=== PATIENT | male | born 1975 | race Caucasian/White ===

== ENCOUNTER 2025-06-13 19:56 | Inpatient (IN) | payer SELFPAY ==
[2025-06-13] MEDS ORDERED: Nitroglycerin 0.4 MG TAB 1 EACH ONE (20:49)
[2025-06-13 20:50] LABS: #Basophils Less than 0.03 10x3/uL (0.0-0.2); #Eosinophils 0.18 10x3/uL (0.0-0.5); #Monocytes 0.64 10x3/uL (0.0-1.1); #Neutrophils 4.06 10x3/uL (1.5-8.4); %Basophils 0.3 % (0.0-2.0); %Eosinophils 2.8 % (0.0-6.0); %Lymphocytes 24.2 % (18.0-47.0); %Monocytes 9.9 % (0.0-10.0); %Neutrophils 62.5 % (40.0-75.0); Hematocrit 46.6 % (38.8-50.0); Hemoglobin 14.8 g/dL (13.5-17.5); Mean Corpuscular Hemoglobin 27.4 pg (27.0-33.0); Mean Corpuscular Volume 86.3 fL (81.2-95.1); Platelet Count 226 10x3/uL (150-450); Red Blood Cell (RBC) Count 5.40 10x6/uL (4.32-5.72); White Blood Cell (WBC) Count 6.49 10x3/uL (3.5-10.5)
[2025-06-13 21:03] LABS: INR-International Normal Ratio 1.3; PTT 24.2 sec (22.0-33.0); Prothrombin Time 13.8 sec (9.5-12.1)
[2025-06-13 21:04] LABS: Actual Bicarbonate (HCO3v) 21.4 mEq/L (22-28); Analyzer IN Cardio CS ER; Base Excess -2.7 mEq/L (-2 - +2); Calcium, Ionized (venous) 1.14 mmol/L (1.16-1.32); Chloride (VBG) 101 mmol/L (98-106); Hematocrit-VBG 47 % (42.0-52.0); Hemoglobin (Hb) 15.9 g/dL (13.1-17.2); Potassium (VBG) 3.51 mmol/L (3.70-5.30); Puncture Site Other Site; RapidComm Collect By lab; Sodium 138 mmol/L (133-146)
[2025-06-13 21:07] LABS: ALT (SGPT) 47 U/L (Less than 45); AST (SGOT) 51 U/L (11-34); Acetaminophen Less than 10 mcg/mL (Less than 10); Albumin 4.2 g/dL (3.1-4.5); Alkaline Phosphatase 74 U/L (40-110); Anion Gap 14 mmol/L (10-20); BUN (Urea Nitrogen) 10 mg/dL (8.9-20.6); Bilirubin, Total 2.0 mg/dL (0.3-1.2); Calc. Creatinine Clearance 0 mL/min (70-130); Calcium 9.0 mg/dL (7.8-10.44); Carbon Dioxide 26 mmol/L (22-29); Chloride 104 mmol/L (98-107); Globulin 3.8 g/dL (2.4-3.5); Glucose 103 mg/dL (70-105); Lipase 28 U/L (8-78); Potassium 3.5 mmol/L (3.5-5.1); Salicylate Less than 8.0 mg/dL (Less than 8.0); Sodium 140 mmol/L (136-145)
[2025-06-13 21:09] LABS: Troponin I 0.074 ng/mL (< 0.028)
[2025-06-13] MEDS ORDERED: Azithromycin 500 MG VIAL ONE (22:04)
[2025-06-13] MEDS ORDERED: cefTRIAXone (ROCEPHIN) 1 GM VIAL ONE (22:04)
[2025-06-13] MEDS ORDERED: Furosemide 100 MG (10 mL) VIAL ONE (22:09)
[2025-06-13 23:18] LABS: Glucose, Urine (Dipstick) Normal (Negative); Leukocyte Negative (Negative); Protein, Urine (Dipstick) 30 mg/dl (Neg-Trace); Specific Gravity, Urine 1.010 (1.005-1.030)
[2025-06-13 23:30] LABS: Bacteria/HPF None Seen HPF (None Seen); CAUTI Indications for Culture Pelvic or flank pain; RBC/HPF 0-3 HPF (0-3); WBC/HPF 0-3 HPF (0-3)
[2025-06-13 23:31] LABS: Urine Culture Reflex No No
[2025-06-13 23:37] LABS: Cocaine Metabolite Screen Negative (Negative); THC/Cannabinoid Screen Negative (Negative); Tricyclic Screen Negative (Negative)
[2025-06-14 00:34] LABS: Troponin I 0.071 ng/mL (< 0.028)
[2025-06-14 00:46] VITALS: BMI 39.7
[2025-06-14 03:44] LABS: #Basophils 0.03 10x3/uL (0.0-0.2); #Eosinophils 0.23 10x3/uL (0.0-0.5); #Monocytes 0.63 10x3/uL (0.0-1.1); #Neutrophils 4.90 10x3/uL (1.5-8.4); %Basophils 0.4 % (0.0-2.0); %Eosinophils 3.2 % (0.0-6.0); %Lymphocytes 20.1 % (18.0-47.0); %Monocytes 8.7 % (0.0-10.0); %Neutrophils 67.2 % (40.0-75.0); Hematocrit 43.3 % (38.8-50.0); Hemoglobin 13.9 g/dL (13.5-17.5); Mean Corpuscular Hemoglobin 27.2 pg (27.0-33.0); Mean Corpuscular Volume 84.7 fL (81.2-95.1); Platelet Count 222 10x3/uL (150-450); Red Blood Cell (RBC) Count 5.11 10x6/uL (4.32-5.72); White Blood Cell (WBC) Count 7.28 10x3/uL (3.5-10.5)
[2025-06-14 04:05] LABS: ALT (SGPT) 41 U/L (Less than 45); AST (SGOT) 52 U/L (11-34); Albumin 3.9 g/dL (3.1-4.5); Alkaline Phosphatase 76 U/L (40-110); Anion Gap 17 mmol/L (10-20); BUN (Urea Nitrogen) 9 mg/dL (8.9-20.6); Bilirubin, Total 1.8 mg/dL (0.3-1.2); Calc. Creatinine Clearance 142 mL/min (70-130); Calcium 8.7 mg/dL (7.8-10.44); Carbon Dioxide 25 mmol/L (22-29); Chloride 102 mmol/L (98-107); Globulin 3.8 g/dL (2.4-3.5); Glucose 101 mg/dL (70-105); Potassium 3.2 mmol/L (3.5-5.1); Sodium 141 mmol/L (136-145)
[2025-06-14 04:12] LABS: Troponin I 0.052 ng/mL (< 0.028)
[2025-06-14] MEDS: Furosemide 40 MG (4 mL) VIAL SLOW IVP SCH (06:35)
[2025-06-14] MEDS ORDERED: Carvedilol 3.125 MG TAB PO SCH (08:00)
[2025-06-14 08:55] LABS: Cardiac Risk 6.1 (Less than 4.5); Cholesterol 129.0 mg/dl (< 200 Desired); HDL Cholesterol 21.0 mg/dL (>60 Neg Risk); LDL Cholesterol, Calculated 86.0 mg/dL; Triglycerides 111.0 mg/dL (Less than 150)
[2025-06-14] MEDS: Losartan 50 MG TAB PO SCH (10:05)
[2025-06-14] MEDS: Enoxaparin 40 MG (0.4 mL) SYRINGE SC SCH (10:06)
[2025-06-14] MEDS: Aspirin Chewable 81 MG TAB PO SCH (10:06)
[2025-06-14] MEDS: PNEUMOC 20-VAL CONJ-DIP CRM/PF 0.5 ML SYRINGE IM ONE (10:08)
[2025-06-14] MEDS: Carvedilol 6.25 MG TAB PO SCH ×2 (10:19→17:40)
[2025-06-14 11:06] LABS: Anion Gap 16 mmol/L (10-20); BUN (Urea Nitrogen) 11 mg/dL (8.9-20.6); Calc. Creatinine Clearance 143 mL/min (70-130); Calcium 8.8 mg/dL (7.8-10.44); Carbon Dioxide 26 mmol/L (22-29); Chloride 102 mmol/L (98-107); Glucose 134 mg/dL (70-105); Sodium 140 mmol/L (136-145)
[2025-06-14 11:08] LABS: Potassium 3.5 mmol/L (3.5-5.1)
[2025-06-14 12:52] LABS: Hep A IgM AB NONREACTIVE (NonReactive); Hep A IgM S/CO 0.13 S/CO (0-0.79); Hep B Core IgM Index 0.10 S/CO (0-0.79); Hep B Surf Ag NONREACTIVE S/CO (NonReactive); Hep C IgG Ab NONREACTIVE S/CO (NonReactive); Hep C Index 0.15 S/CO (0-0.79)
[2025-06-15 04:52] LABS: Magnesium 2.1 mg/dL (1.6-2.6)
[2025-06-15] MEDS: Valsartan 80 MG TAB PO SCH (09:25)
[2025-06-15 11:17] LABS: Anion Gap 13 mmol/L (10-20); BUN (Urea Nitrogen) 12 mg/dL (8.9-20.6); Calc. Creatinine Clearance 137 mL/min (70-130); Calcium 9.0 mg/dL (7.8-10.44); Carbon Dioxide 33 mmol/L (22-29); Chloride 99 mmol/L (98-107); Glucose 92 mg/dL (70-105); Potassium 3.4 mmol/L (3.5-5.1); Sodium 142 mmol/L (136-145)
[2025-06-15 12:54] LABS: Magnesium 2.1 mg/dL (1.6-2.6)
[2025-06-15] MEDS: Carvedilol 6.25 MG TAB PO SCH (16:45)
[2025-06-16 05:55] LABS: Anion Gap 16 mmol/L (10-20); BUN (Urea Nitrogen) 14 mg/dL (8.9-20.6); Calc. Creatinine Clearance 128 mL/min (70-130); Calcium 8.8 mg/dL (7.8-10.44); Carbon Dioxide 29 mmol/L (22-29); Chloride 100 mmol/L (98-107); Glucose 98 mg/dL (70-105); Potassium 4.0 mmol/L (3.5-5.1); Sodium 141 mmol/L (136-145)
[2025-06-16] MEDS: Spironolactone 25 MG TAB PO SCH (11:19)
[2025-06-17 04:32] LABS: Anion Gap 17 mmol/L (10-20); BUN (Urea Nitrogen) 17 mg/dL (8.9-20.6); Calc. Creatinine Clearance 156 mL/min (70-130); Calcium 8.6 mg/dL (7.8-10.44); Carbon Dioxide 24 mmol/L (22-29); Chloride 104 mmol/L (98-107); Glucose 90 mg/dL (70-105); Potassium 4.0 mmol/L (3.5-5.1); Sodium 141 mmol/L (136-145)
[2025-06-17] MEDS: Spironolactone 25 MG TAB PO SCH (08:53)
[2025-06-17] MEDS: Furosemide 40 MG TAB PO SCH (08:53)
[2025-06-17 12:39] VITALS: BP 107/67; TEMP 98
== END 2025-06-17 16:26 | disposition home or self-care (01) | DRG 280 ==
LOC: CSHERS 19:56 → CSHTELE 22:35
PROVIDERS: ADMIT Hospitalist; ATTEND Hospitalist
DX: I11.0 Hypertensive heart disease with heart failure (principal); I50.23 Acute on chronic systolic (congestive) heart failure; I21.A1 Myocardial infarction type 2; J18.9 Pneumonia, unspecified organism; J45.901 Unspecified asthma with (acute) exacerbation; I42.8 Other cardiomyopathies; Z88.0 Allergy status to penicillin; Z79.899 Other long term (current) drug therapy; F17.220 Nicotine dependence, chewing tobacco, uncomplicated; E87.6 Hypokalemia; Z79.82 Long term (current) use of aspirin; F10.20 Alcohol dependence, uncomplicated; I42.0 Dilated cardiomyopathy
CPT/HCPCS: 36415; 71045; 71275; 74177; 80048; 80053; 80061; 80074; 80306; 80307; 81001; 82805; 83036; 83605; 83690; 83735; 83880; 84443; 84484; 85025; 85610; 85730; 87040; 87426; 93005; 93010; 93306; 94640; 96365; 96375; J0456; J0696; J1650; J1940; J7050; J7612; J7620

== ENCOUNTER 2025-06-22 14:31 | Observation (INO) | payer SELFPAY ==
[~2025-06-22 14:31] MED LIST: Iopamidol 370 76% 100 ML VIAL ONE
[2025-06-22 15:15] LABS: #Basophils 0.05 10x3/uL (0.0-0.2); #Eosinophils 0.26 10x3/uL (0.0-0.5); #Monocytes 0.65 10x3/uL (0.0-1.1); #Neutrophils 2.77 10x3/uL (1.5-8.4); %Basophils 1.0 % (0.0-2.0); %Eosinophils 5.0 % (0.0-6.0); %Lymphocytes 27.9 % (18.0-47.0); %Monocytes 12.5 % (0.0-10.0); %Neutrophils 53.4 % (40.0-75.0); Hematocrit 47.1 % (38.8-50.0); Hemoglobin 14.8 g/dL (13.5-17.5); Mean Corpuscular Hemoglobin 27.0 pg (27.0-33.0); Mean Corpuscular Volume 85.9 fL (81.2-95.1); Platelet Count 250 10x3/uL (150-450); Red Blood Cell (RBC) Count 5.48 10x6/uL (4.32-5.72); White Blood Cell (WBC) Count 5.19 10x3/uL (3.5-10.5)
[2025-06-22 15:20] LABS: INR-International Normal Ratio 1.3; PTT 25.5 sec (22.0-33.0); Prothrombin Time 13.5 sec (9.5-12.1)
[2025-06-22 15:22] LABS: ALT (SGPT) 45 U/L (Less than 45); AST (SGOT) 40 U/L (11-34); Albumin 4.3 g/dL (3.1-4.5); Alkaline Phosphatase 80 U/L (40-110); Anion Gap 14 mmol/L (10-20); BUN (Urea Nitrogen) 14 mg/dL (8.9-20.6); Bilirubin, Total 1.2 mg/dL (0.3-1.2); Calc. Creatinine Clearance 0 mL/min (70-130); Calcium 9.5 mg/dL (7.8-10.44); Carbon Dioxide 26 mmol/L (22-29); Chloride 103 mmol/L (98-107); Globulin 3.7 g/dL (2.4-3.5); Glucose 120 mg/dL (70-105); Potassium 4.5 mmol/L (3.5-5.1); Sodium 138 mmol/L (136-145)
[2025-06-22 15:28] LABS: Troponin I 0.031 ng/mL (< 0.028)
[2025-06-22 16:12] LABS: Acetaminophen Less than 10 mcg/mL (Less than 10); Salicylate Less than 8.0 mg/dL (Less than 8.0)
[2025-06-22 16:29] LABS: Cocaine Metabolite Screen Negative (Negative); THC/Cannabinoid Screen Negative (Negative); Tricyclic Screen Negative (Negative)
[2025-06-22] MEDS ORDERED: Acetaminophen 325 MG TAB PO PRN (16:38)
[2025-06-22] MEDS ORDERED: Albuterol 2.5 MG (3 mL) NEB NEB PRN (16:50)
[2025-06-22 18:45] VITALS: BMI 36.1
[2025-06-22] MEDS: Famotidine 20 MG TAB PO SCH (21:57)
[2025-06-22] MEDS: Carvedilol 12.5 MG TAB PO SCH (21:57)
[2025-06-23 05:29] LABS: #Basophils 0.04 10x3/uL (0.0-0.2); #Eosinophils 0.33 10x3/uL (0.0-0.5); #Monocytes 0.73 10x3/uL (0.0-1.1); #Neutrophils 3.34 10x3/uL (1.5-8.4); %Basophils 0.7 % (0.0-2.0); %Eosinophils 5.6 % (0.0-6.0); %Lymphocytes 24.4 % (18.0-47.0); %Monocytes 12.4 % (0.0-10.0); %Neutrophils 56.7 % (40.0-75.0); Hematocrit 45.3 % (38.8-50.0); Hemoglobin 14.1 g/dL (13.5-17.5); Mean Corpuscular Hemoglobin 26.6 pg (27.0-33.0); Mean Corpuscular Volume 85.5 fL (81.2-95.1); Platelet Count 202 10x3/uL (150-450); Red Blood Cell (RBC) Count 5.30 10x6/uL (4.32-5.72); White Blood Cell (WBC) Count 5.89 10x3/uL (3.5-10.5)
[2025-06-23 05:46] LABS: Anion Gap 17 mmol/L (10-20); BUN (Urea Nitrogen) 14 mg/dL (8.9-20.6); Calc. Creatinine Clearance 124 mL/min (70-130); Calcium 9.1 mg/dL (7.8-10.44); Carbon Dioxide 23 mmol/L (22-29); Cardiac Risk 7.6 (Less than 4.5); Chloride 102 mmol/L (98-107); Cholesterol 121 mg/dl (< 200 Desired); Glucose 84 mg/dL (70-105); HDL Cholesterol 16 mg/dL (>60 Neg Risk); LDL Cholesterol, Calculated 83 mg/dL; Potassium 4.3 mmol/L (3.5-5.1); Sodium 138 mmol/L (136-145); Triglycerides 112 mg/dL (Less than 150)
[2025-06-23] MEDS: Furosemide 40 MG TAB PO SCH (07:17)
[2025-06-23] MEDS: PNEUMOC 20-VAL CONJ-DIP CRM/PF 0.5 ML SYRINGE IM ONE (07:32)
[2025-06-23] MEDS: Aspirin 81 mg Enteric Coated Tablet PO SCH (09:05)
[2025-06-23] MEDS: Spironolactone 25 MG TAB PO SCH (09:05)
[2025-06-23] MEDS: Valsartan 80 MG TAB PO SCH (09:05)
[2025-06-23 16:06] VITALS: BP 125/97; TEMP 97.7
[2025-06-23 16:57] LABS: D-Dimer Test 0.8 mcg/mL (0.19-0.50); INR-International Normal Ratio 1.2; PTT 25.1 sec (22.0-33.0); Prothrombin Time 13.1 sec (9.5-12.1)
[2025-06-23] MEDS ORDERED: Enoxaparin 40 MG (0.4 mL) SYRINGE SC SCH (21:00)
[2025-06-25 12:17] LABS: EliA APS New Method **** NEW METHOD ****
== END 2025-06-23 19:28 | disposition home or self-care (01) ==
LOC: CSHERS 14:31 → CSHTELE 15:55
PROVIDERS: ADMIT Hospitalist; ATTEND Hospitalist
DX: I63.9 Cerebral infarction, unspecified (principal); R29.702 NIHSS score 2; I11.0 Hypertensive heart disease with heart failure; I50.20 Unspecified systolic (congestive) heart failure; I5A Non-ischemic myocardial injury (non-traumatic); J45.909 Unspecified asthma, uncomplicated; F17.200 Nicotine dependence, unspecified, uncomplicated; Z88.0 Allergy status to penicillin; Z79.51 Long term (current) use of inhaled steroids; Z79.899 Other long term (current) drug therapy
CPT/HCPCS: 36415; 36416; 70450; 70496; 70498; 70551; 71045; 80048; 80053; 80061; 80306; 80307; 83090; 84484; 85025; 85300; 85303; 85306; 85307; 85598; 85610; 85730; 86147; 93005; 94760; G0378; Q9967